=== PATIENT | male | born 1965 | race African-American/Black ===

== ENCOUNTER 2018-06-01 10:36 | Emergency (ER) | payer MEDICAID ==
[~2018-06-01] VITALS: Ht 180.3 cm; Wt 100.0 kg
[2018-06-01 10:47] VITALS: BP 141/93
== END 2018-06-01 13:02 | disposition home or self-care (01) ==
LOC: ER 10:36
DX: T59.3X3A Toxic effect of lacrimogenic gas, assault, initial encounter (principal); H57.89 Other specified disorders of eye and adnexa; Y07.59 Other non-family member, perpetrator of maltreatment and neglect; Y92.038 Other place in apartment as the place of occurrence of the external cause
CPT/HCPCS: 99282

== ENCOUNTER 2019-05-04 09:36 | Emergency (ER) | payer MEDICAID ==
[~2019-05-04] VITALS: Ht 180.3 cm; Wt 99.0 kg
[2019-05-04] MEDS ORDERED: KETOROLAC 60MG/2ML VIAL IM ONE (10:15)
[2019-05-04 10:38] VITALS: BP 144/94
== END 2019-05-04 10:47 | disposition home or self-care (01) ==
LOC: ER 09:36
DX: G89.29 Other chronic pain (principal); M54.42 Lumbago with sciatica, left side
CPT/HCPCS: 96372; 99283; J1885